=== PATIENT | female | born 1950 | race Caucasian/White ===

== ENCOUNTER 2023-03-12 21:00 | Inpatient (IN) | payer MEDICARE, OTHER ==
[~2023-03-12] VITALS: Ht 157.5 cm; Wt 63.5 kg
[2023-03-12 22:36] LABS: BASOPHILS % (AUTO) 0.4 % (0.0-2.0); EOSINOPHILS # (AUTO) 0.1 K/uL (0.0-0.7); EOSINOPHILS % (AUTO) 1.1 % (0.0-7.0); HEMOGLOBIN 12.3 g/dL (10.9-14.3); LYMPHOCYTES # (AUTO) 1.9 K/uL (0.8-4.8); MEAN CORPUSCULAR HEMOGLOBIN 29.9 uug (24.7-32.8); MEAN CORPUSCULAR HGB CONC 33 g/dL (32.3-35.6); MEAN CORPUSCULAR VOLUME 89.7 fL (75.5-95.3); MONOCYTES # (AUTO) 0.7 K/uL (0.1-1.30); MONOCYTES % (AUTO) 8.4 % (0.0-11.0); NEUTROPHILS # (AUTO) 5.5 K/uL (1.8-8.9); NEUTROPHILS % (AUTO) 67.1 % (38.5-71.5); PLATELET COUNT (AUTO) 312 K/uL (179-408); RED BLOOD CELL COUNT(AUTO) 4.13 MIL/uL (3.63-4.92); RED CELL DISTRIBUTION WIDTH 13.3 % (12.3-17.7); WHITE BLOOD COUNT (AUTO) 8.2 K/uL (3.8-11.8)
[2023-03-12 22:54] LABS: CALCIUM 9.1 mg/dL (8.5-10.1); CARBON DIOXIDE 24 mmol/L (21-32); CHLORIDE 103 mmol/L (98-107); CREATININE 1.2 mg/dL (0.6-1.3); GLUCOSE 202 mg/dL (74-106); POTASSIUM 4.2 mmol/L (3.5-5.1); SODIUM SERUM 139 mmol/L (136-145); UREA NITROGEN, BLOOD 18 mg/dL (7-18)
[2023-03-12 23:03] LABS: ALANINE AMINOTRANSFERASE 20 U/L (14-59); ALBUMIN 3.3 g/dL (3.4-5.0); ALKALINE PHOSPHATASE 42 U/L (50-136); ASPARTATE AMINOTRANSFERASE 6 U/L (15-37); BILIRUBIN,DIRECT 0.2 mg/dL (0.0-0.2); BILIRUBIN,TOTAL 0.3 mg/dL (0.2-1.0); TOTAL PROTEIN, SERUM 6.6 g/dL (6.4-8.2)
[2023-03-12] MEDS ORDERED: CLOPIDOGREL 75 MG TABLET PO ONE (23:15)
[2023-03-12] MEDS ORDERED: ASPIRIN EC 325 MG TABLET.DR PO SCH (23:15)
[2023-03-12] MEDS ORDERED: ASPIRIN 325 MG TABLET ONE (23:43)
[2023-03-13] VITALS (8 sets, daily range): BP systolic 122–174; BP diastolic 42–78; TEMP 97.7–98.4; O2SAT 97–98
[2023-03-13 00:26] LABS: *BILIRUBIN,URIN NEGATIVE (NEGATIVE); *CLARITY,URINE CLEAR (CLEAR); *COLOR,URINE LIGHT YELLOW (YELLOW); *KETONES,URINE NEGATIVE (NEGATIVE); *PROTEIN,URINE NEGATIVE (NEGATIVE); *UROBILINOGEN,URINE 0.2 E.U./dl (NORMAL); LEUKOCYTE ESTERASE ,URINE 1+ (NEGATIVE); NITRITE, URINE NEGATIVE (NEGATIVE); PH,URINE 6.5 (5.0-8.0); UGLUCOSE NEGATIVE (NEGATIVE)
[2023-03-13 00:35] LABS: *BLOOD, URINE TRACE (NEGATIVE)
[2023-03-13] MEDS ORDERED: LOSA100T31 PO (01:07)
[2023-03-13] MEDS ORDERED: METO25TA6 PO (01:07)
[2023-03-13] MEDS ORDERED: SITA100T PO (01:07)
[2023-03-13] MEDS: ENOXAPARIN SODIUM 40 MG/0.4 ML DISP.SYRIN SQ SCH ×2 (01:52→21:28)
[2023-03-13] MEDS ORDERED: BLOOD SUGAR DIAGNOSTIC 1 EACH STRIP VI SCH (06:00)
[2023-03-13] MEDS: PANTOPRAZOLE SODIUM 40 MG TABLET.DR PO SCH (06:22)
[2023-03-13 06:40] LABS: RBC,URINE 0-3 /HPF (0-3)
[2023-03-13 06:41] LABS: BACTERIA,URINE RARE /HPF (NONE SEEN); SQUAMOUS EPITHELIAL CELL,UR FEW /HPF (NONE SEEN)
[2023-03-13] MEDS: BLOOD SUGAR DIAGNOSTIC 1 EACH STRIP VI SCH ×5 (07:48→21:33)
[2023-03-13] MEDS ORDERED: DEXTROSE 50% 50 ML DISP.SYRIN IV PRN (08:30)
[2023-03-13] MEDS: ASPIRIN EC 81 MG TABLET.DR PO SCH (08:32)
[2023-03-13] MEDS: CLOPIDOGREL 75 MG TABLET PO SCH (08:32)
[2023-03-13] MEDS: CEphaleXIN 500 MG CAPSULE PO SCH ×3 (08:48→21:51)
[2023-03-13] MEDS: INSULIN REGULAR, HUMAN 300 UNIT/3 ML VIAL SQ PRN ×3 (11:44→21:48)
[2023-03-13] MEDS ORDERED: SWABABLE VALVE TRANSFER SET EA MC ONE (12:15)
[2023-03-13] MEDS ORDERED: IV NORMAL SALINE 250 ML IV ONE (12:15)
[2023-03-13] MEDS ORDERED: IOHEXOL 350 100 ML INFUS..BTL ONE (12:15)
[2023-03-13] MEDS: ATORVASTATIN 20 MG TABLET PO SCH (21:27)
[2023-03-14 03:30] VITALS: BP 174/78; TEMP 97.7
[2023-03-14 04:32] VITALS: BP 171/73; TEMP 97.3; O2SAT 98
[2023-03-14] MEDS ORDERED: CLONIDINE HCL 0.1 MG TABLET PO ONE (05:00)
[2023-03-14] MEDS: CEphaleXIN 500 MG CAPSULE PO SCH ×3 (06:54→21:23)
[2023-03-14] MEDS: PANTOPRAZOLE SODIUM 40 MG TABLET.DR PO SCH (06:54)
[2023-03-14] MEDS: BLOOD SUGAR DIAGNOSTIC 1 EACH STRIP VI SCH ×4 (07:32→20:34)
[2023-03-14] MEDS ORDERED: HOME MED MISCELLANEOUS XX SCH (08:45)
[2023-03-14] MEDS ORDERED: hydrALAZINE HCL 20 MG/1 ML VIAL IV PRN (08:45)
[2023-03-14] MEDS ORDERED: SITA1TAB6 PO (09:32)
[2023-03-14] MEDS: METOPROLOL TARTRATE 25 MG TABLET PO SCH ×2 (09:42→17:15)
[2023-03-14] MEDS: ASPIRIN EC 81 MG TABLET.DR PO SCH (09:43)
[2023-03-14] MEDS: LOSARTAN POTASSIUM 50 MG TABLET PO SCH (09:43)
[2023-03-14] MEDS: CLOPIDOGREL 75 MG TABLET PO SCH (09:43)
[2023-03-14] MEDS: INSULIN REGULAR, HUMAN 300 UNIT/3 ML VIAL SQ PRN ×3 (13:23→20:38)
[2023-03-14 16:18] VITALS: BP 126/49; TEMP 97.6; O2SAT 97
[2023-03-14] MEDS ORDERED: ASPI-495 PO (16:52)
[2023-03-14] MEDS ORDERED: ATOR20TA PO (16:52)
[2023-03-14 20:15] VITALS: BP 132/74; TEMP 98.9; O2SAT 95
[2023-03-14] MEDS: ATORVASTATIN 20 MG TABLET PO SCH (20:23)
[2023-03-14] MEDS: ENOXAPARIN SODIUM 40 MG/0.4 ML DISP.SYRIN SQ SCH (20:38)
[2023-03-15 04:25] VITALS: BP 161/67; TEMP 98.5; O2SAT 96
[2023-03-15] MEDS: CEphaleXIN 500 MG CAPSULE PO SCH ×2 (06:40→13:21)
[2023-03-15] MEDS: PANTOPRAZOLE SODIUM 40 MG TABLET.DR PO SCH (06:40)
[2023-03-15] MEDS: BLOOD SUGAR DIAGNOSTIC 1 EACH STRIP VI SCH ×2 (07:30→12:10)
[2023-03-15] MEDS: INSULIN REGULAR, HUMAN 300 UNIT/3 ML VIAL SQ PRN ×2 (08:41→12:12)
[2023-03-15] MEDS: CLOPIDOGREL 75 MG TABLET PO SCH (08:44)
[2023-03-15] MEDS: ASPIRIN EC 81 MG TABLET.DR PO SCH (08:44)
[2023-03-15] MEDS: METOPROLOL TARTRATE 25 MG TABLET PO SCH (08:45)
[2023-03-15] MEDS: LOSARTAN POTASSIUM 50 MG TABLET PO SCH (08:45)
[2023-03-15] MEDS ORDERED: MECLIZINE HCL 25 MG TABLET PO ONE (10:30)
[2023-03-15 11:05] VITALS: BP 109/61; TEMP 98.2; O2SAT 98
[2023-03-15] MEDS ORDERED: JANUMET PO SCH (18:00)
== END 2023-03-15 14:05 | disposition home or self-care (01) | DRG 69 ==
LOC: ER 21:03 → TELE3 03-13 01:07 → MEDSURG3 03-13 12:19
PROVIDERS: ADMIT Nurse Practitioner Acute Care; ATTEND Nurse Practitioner Acute Care
DX: G45.9 Transient cerebral ischemic attack, unspecified (principal); I16.0 Hypertensive urgency; R29.700 NIHSS score 0; R29.810 Facial weakness; G31.9 Degenerative disease of nervous system, unspecified; Z79.84 Long term (current) use of oral hypoglycemic drugs; E66.9 Obesity, unspecified; Z68.25 Body mass index [BMI] 25.0-25.9, adult; E11.9 Type 2 diabetes mellitus without complications; I10 Essential (primary) hypertension; R47.81 Slurred speech; R20.0 Anesthesia of skin
CPT/HCPCS: 36415; 70450; 70496; 70551; 84484; 85025; 85730; 93005; A4606; A4663; G0378; J1650; J1815; J8597; Q9967